=== PATIENT | male | born 1945 | race Caucasian/White ===

== ENCOUNTER 2017-04-13 06:42 | Day surgery (SDC) | payer MEDICARE ==
[2017-04-13] MEDS ORDERED: Sodium Chloride 0.9% 1,000 ML IV SCH (06:45)
[2017-04-13] MEDS ORDERED: Midazolam 1 MG/ML 2 ML SDV ONE (07:57)
[2017-04-13] MEDS ORDERED: fentaNYL 100 MCG/2 ML SDV ONE (07:57)
[2017-04-13] MEDS ORDERED: Propofol 200 MG/20 ML SDV ONE (07:57)
--- NOTE | 2017-04-13 13:01 | OR ---
DATE OF PROCEDURE: 04/13/2017 PROCEDURE: Colonoscopy. FINDINGS: 1. Ascending colon polyp, approximately 5 mm, completely removed using cold biopsy forceps. 2. Descending colon polyp, approximately 8 mm to 1 cm, completely removed using hot snare. COMPLICATIONS: None. 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 ANESTHESIA: MAC. PREOPERATIVE DIAGNOSIS: Screening colonoscopy. POSTOPERATIVE DIAGNOSIS: Screening colonoscopy. RISKS: Risks, benefits, alternatives, limitations including, but not limited to infection, bleeding, and perforation were explained to the patient. We also discussed the slightly higher risk with Coumadin therapy with his INR being 3.1 this a.m. He understands these risks and wishes to proceed. PROCEDURE IN DETAIL: The patient was placed in left lateral decubitus position. Digital rectal exam was performed without abnormality. The scope was introduced and advanced atraumatically to the ileocecal valve. The scope was brought back to the ascending, transverse, descending colon, and retroflexed. During this process, the aforementioned polyps were identified and completely removed using the described method. There was no active bleeding from any polyp sites. No diverticulosis. No old or new blood. No masses. No other concerns. The patient tolerated the procedure well. Milton Nicholson MD /[id number]
== END 2017-04-13 10:10 | disposition home or self-care (01) ==
LOC: JP.SDS 06:42
PROVIDERS: ATTEND Surgery
DX: Z12.11 Encounter for screening for malignant neoplasm of colon (principal); D12.2 Benign neoplasm of ascending colon; K63.5 Polyp of colon; I48.91 Unspecified atrial fibrillation; I25.10 Atherosclerotic heart disease of native coronary artery without angina pectoris; E78.5 Hyperlipidemia, unspecified; Z88.8 Allergy status to other drugs, medicaments and biological substances; Z79.01 Long term (current) use of anticoagulants; Z79.82 Long term (current) use of aspirin; Z79.899 Other long term (current) drug therapy; Z87.891 Personal history of nicotine dependence
CPT/HCPCS: 36415; 45380; 45385; 85610; 88305; J2250; J2704; J3010; J7040

== ENCOUNTER 2020-08-02 07:11 | Day surgery (SDC) | payer MEDICARE ==
[2020-08-02] MEDS ORDERED: Sodium Chloride 0.9% 1,000 ML IV SCH (08:00)
[2020-08-02] MEDS ORDERED: Propofol 200 MG/20 ML SDV ONE (08:15)
[2020-08-02] MEDS ORDERED: fentaNYL 100 MCG/2 ML SDV ONE (08:15)
--- NOTE | 2020-08-02 11:40 | OR ---
DATE OF PROCEDURE: 08/02/2020 SURGEON: Milton Nicholson MD PROCEDURE: Colonoscopy. FINDINGS: Normal colonoscopy. PREOPERATIVE DIAGNOSIS: Family history of colorectal cancer. POSTOPERATIVE DIAGNOSIS: Family history of colorectal cancer. RISKS: Risks, benefits, alternatives, and limitations including, but not limited to infection, bleeding, perforation, false positives and false negatives were explained to the patient who wished to proceed. PROCEDURE IN DETAIL: The patient was placed in left lateral decubitus position. Digital rectal exam was performed without abnormality. Scope was introduced and advanced atraumatically to the ileocecal valve. A photo was taken of this. Scope was brought back to the ascending, transverse, descending colon, and retroflexed. No old or new blood. No masses. No polyps. No diverticulitis. No colitis. No abnormalities on retroflexion. Prep was acceptable, approximately 90% of the luminal surface could be seen. Greater than 8 minutes was spent removing the scope. The patient tolerated the procedure well. Milton Nicholson MD /[id number]
== END 2020-08-02 10:50 | disposition home or self-care (01) ==
LOC: JP.SDS 07:11
PROVIDERS: ATTEND Surgery
DX: Z12.11 Encounter for screening for malignant neoplasm of colon (principal); I48.91 Unspecified atrial fibrillation; E78.5 Hyperlipidemia, unspecified; I25.10 Atherosclerotic heart disease of native coronary artery without angina pectoris; Z86.010 Personal history of colon polyps; Z88.8 Allergy status to other drugs, medicaments and biological substances; Z80.0 Family history of malignant neoplasm of digestive organs
CPT/HCPCS: J2704; J3010; J7030

== ENCOUNTER 2023-10-31 23:37 | Emergency (ER) | payer OTHER, MEDICARE | END 2023-11-01 00:40 | disposition home or self-care (01) | LOC: JP.ED 23:37 | DX: M54.50 Low back pain, unspecified (principal); I10 Essential (primary) hypertension; E78.00 Pure hypercholesterolemia, unspecified; Z79.899 Other long term (current) drug therapy; Z88.8 Allergy status to other drugs, medicaments and biological substances; V89.2XXA Person injured in unspecified motor-vehicle accident, traffic, initial encounter | CPT/HCPCS: 99283 ==